=== PATIENT | female | born 1955 | race Caucasian/White ===

== ENCOUNTER 2016-10-13 13:38 | Emergency (ER) | payer OTHER ==
[~2016-10-13] VITALS: Ht 160 cm; Wt 90.9 kg
[2016-10-13] MEDS ORDERED: METF500T4 PO (13:55)
[2016-10-13] MEDS ORDERED: LISI-622 PO (13:55)
[2016-10-13] MEDS ORDERED: INSLAN SQ (13:55)
[2016-10-13 14:02] LABS: GLUCOSE,POINT OF CARE 178 MG/DL (70-110)
[2016-10-13 15:17] VITALS: BP 176/67
== END 2016-10-13 15:50 | disposition home or self-care (01) ==
LOC: EMS 13:40
DX: S16.1XXA Strain of muscle, fascia and tendon at neck level, initial encounter (principal); E11.9 Type 2 diabetes mellitus without complications; I10 Essential (primary) hypertension; Z79.4 Long term (current) use of insulin; V43.52XA Car driver injured in collision with other type car in traffic accident, initial encounter; Y93.89 Activity, other specified; Y92.89 Other specified places as the place of occurrence of the external cause; Y99.8 Other external cause status
CPT/HCPCS: 72040; 82962; 99284

== ENCOUNTER 2022-02-05 12:03 | Emergency (ER) | payer OTHER ==
[~2022-02-05] VITALS: Ht 157.5 cm; Wt 91.0 kg
[~2022-02-05 12:03] MED LIST: INSLAN SQ; LISI5TAB21 PO; METF-444 PO
[2022-02-05] MEDS ORDERED: IBUPROFEN 600 MG TABLET PO ONE (14:00)
[2022-02-05] MEDS ORDERED: CYCLOBENZAPRINE HCL 10 MG TABLET PO ONE (14:00)
[2022-02-05] MEDS ORDERED: CYCL-448 PO (15:41)
[2022-02-05] MEDS ORDERED: IBUP-2070 PO (15:41)
[2022-02-05 16:03] VITALS: BP 179/80
== END 2022-02-05 16:04 | disposition home or self-care (01) ==
LOC: EMS 12:11
DX: S13.4XXA Sprain of ligaments of cervical spine, initial encounter (principal); S39.012A Strain of muscle, fascia and tendon of lower back, initial encounter; S09.90XA Unspecified injury of head, initial encounter; E11.9 Type 2 diabetes mellitus without complications; I10 Essential (primary) hypertension; V89.2XXA Person injured in unspecified motor-vehicle accident, traffic, initial encounter; Y93.89 Activity, other specified; Y92.89 Other specified places as the place of occurrence of the external cause; Y99.8 Other external cause status
CPT/HCPCS: 70450; 72100; 72125; 82962; 99284